=== PATIENT | female | born 1995 | race Caucasian/White ===

== ENCOUNTER 2016-08-26 16:54 | Emergency (ER) | payer MEDICAID, OTHER ==
[~2016-08-26] VITALS: Ht 167.6 cm; Wt 65.8 kg
[2016-08-26 17:34] VITALS: BP 129/78
--- NOTE | 2016-08-26 18:20 | NUR ---
Note undone in EDM - 08/26/16 at 1852 by EVELYN PT STATES INTERMITTENT ABDOMEN PAIN FOR ONE DAY . DENIES N/V/D; SKIN IS PINK/WARM/DRY; AAOX4 WITH EVEN AND STEADY GAIT; LUNGS CLEAR BL; HR EVEN AND REGULAR; PT DENIES ANY FEVER, CP, SOB, OR COUGH AT THIS TIME; PATIENT STATES PAIN OF 0/10 AT THIS TIME; VSS; PATIENT POSITIONED FOR COMFORT; HOB ELEVATED; BEDRAILS UP X2; BED DOWN. ER MADE AWARE OF PT STATUS.
--- NOTE | 2016-08-26 18:26 | NUR ---
PT AMBULATED TO ER BED 04.
--- NOTE | 2016-08-26 18:27 | NUR ---
PT STATES INTERMITTENT ABDOMEN PAIN FOR ONE DAY . DENIES N/V/D; SKIN IS PINK/WARM/DRY; AAOX4 WITH EVEN AND STEADY GAIT; LUNGS CLEAR BL; HR EVEN AND REGULAR; PT DENIES ANY FEVER, CP, SOB, OR COUGH AT THIS TIME; PATIENT STATES PAIN OF 0/10 AT THIS TIME; VSS; PATIENT POSITIONED FOR COMFORT; HOB ELEVATED; BEDRAILS UP X2; BED DOWN. ER MD MADE AWARE OF PT STATUS.
--- NOTE | 2016-08-26 19:10 | NUR ---
ENDORSED PT TO SAMI MCADAMS.
--- NOTE | 2016-08-26 19:11 | NUR ---
RECEIVED REPORT FROM DANISHA MCADAMS. ASSUMED PT CARE.
[2016-08-26 19:50] VITALS: BP 110/70
--- NOTE | 2016-08-26 19:51 | NUR ---
Patient discharged with v/s stable. Written and verbal after care instructions given and explained BY DR RODRIGUEZ. Patient verbalized understanding. Ambulatory with steady gait. All questions addressed prior to discharge. Advised to follow up with PMD.
== END 2016-08-26 19:51 | disposition home or self-care (01) ==
LOC: MED 16:54
DX: O26.891 Other specified pregnancy related conditions, first trimester (principal); R10.30 Lower abdominal pain, unspecified; Z3A.01 Less than 8 weeks gestation of pregnancy

== ENCOUNTER 2018-06-13 16:30 | Emergency (ER) | payer OTHER ==
[~2018-06-13] VITALS: Ht 165.1 cm; Wt 71.7 kg
[2018-06-13 17:05] VITALS: BP 101/73
[2018-06-13 20:41] LABS: BASOPHILS % (AUTO) 0.3 % (0.0-2.0); EOSINOPHILS # (AUTO) 0.1 K/uL (0-0.4); EOSINOPHILS % (AUTO) 0.5 % (0.0-4.0); HEMATOCRIT 41.8 % (36-48); HEMOGLOBIN 13.6 g/dL (12.0-16.0); LYMPHOCYTES # (AUTO) 3.2 K/uL (2.5-16.5); LYMPHOCYTES % (AUTO) 21.3 % (20.5-51.1); MEAN CORPUSCULAR HEMOGLOBIN 27 pg (27-31); MEAN CORPUSCULAR HGB CONC 33 g/dL (33-37); MEAN CORPUSCULAR VOLUME 83.4 fL (80-94); MONOCYTES # (AUTO) 0.9 K/uL (0.8-1.0); MONOCYTES % (AUTO) 6.1 % (1.7-9.3); NEUTROPHILS # (AUTO) 10.8 K/uL (1.8-7.7); NEUTROPHILS % (AUTO) 71.8 % (42.2-75.2); PLATELET COUNT (AUTO) 169 K/uL (140-450); RED BLOOD CELL COUNT(AUTO) 5.01 MIL/uL (4.20-5.40); RED CELL DISTRIBUTION WIDTH 13.6 % (11.6-13.7)
[2018-06-13 20:49] LABS: ALBUMIN 3.7 g/dL (3.4-5.0); ANION GAP 15.8 (8-16); CARBON DIOXIDE 24.5 mmol/L (21-32); CREATININE 0.5 mg/dL (0.6-1.3); POTASSIUM 4.3 mmol/L (3.5-5.1); TOTAL BILIRUBIN 0.3 mg/dL (0.0-1.0)
[2018-06-13 21:16] LABS: APPEARANCE,URINE CLEAR (CLEAR); BILIRUBIN,URINE NEGATIVE (NEGATIVE); BLOOD, URINE NEGATIVE (NEGATIVE); COLOR,URINE YELLOW (YELLOW); LEUKOCYTE ESTERASE ,URINE NEGATIVE (NEGATIVE); NITRITE, URINE NEGATIVE (NEGATIVE); UGLUCOSE NEGATIVE (NEGATIVE)
[2018-06-13 22:49] VITALS: BP 128/75
== END 2018-06-13 22:49 | disposition home or self-care (01) ==
LOC: MED 16:30
DX: O20.0 Threatened abortion (principal); Z3A.08 8 weeks gestation of pregnancy
CPT/HCPCS: 36415; 76817; 80053; 81003; 81025; 84702; 85025; 86900; 86901; 99284; Q0092

== ENCOUNTER 2018-06-19 12:55 | Emergency (ER) | payer OTHER ==
[~2018-06-19] VITALS: Ht 167.6 cm; Wt 72.1 kg
[2018-06-19 13:02] VITALS: BP 102/51
[2018-06-19 15:58] VITALS: BP 102/51
== END 2018-06-19 15:55 | disposition home or self-care (01) ==
LOC: MED 12:55
DX: O26.851 Spotting complicating pregnancy, first trimester (principal)
CPT/HCPCS: 36415; 81002; 81025; 84702; 99283

== ENCOUNTER 2018-08-30 21:09 | Emergency (ER) | payer OTHER ==
[~2018-08-30] VITALS: Ht 167.6 cm; Wt 79.4 kg
--- NOTE | 2018-08-30 21:23 | NUR ---
PT TAKEN TO BED 2
[2018-08-30 21:27] VITALS: BP 120/74
--- NOTE | 2018-08-30 21:39 | NUR ---
PT TAKEN TO ULTRASOUND
--- NOTE | 2018-08-30 22:07 | NUR ---
PT RETURN FROM ULTRASOUND
[2018-08-30] MEDS ORDERED: IBUPROFEN 800 MG TAB PO ONE (22:40)
[2018-08-30 23:08] VITALS: BP 110/75
--- NOTE | 2018-08-30 23:10 | NUR ---
Patient discharged with v/s stable. Written and verbal after care instructions given and explained. Patient alert, oriented and verbalized understanding of instructions. Ambulatory with steady gait. All questions addressed prior to discharge. ID band removed. Patient advised to follow up with PMD. Rx of MORTRIN 800MG given. Patient educated on indication of medication including possible reaction and side effects. Opportunity to ask questions provided and answered.
== END 2018-08-30 23:10 | disposition home or self-care (01) ==
LOC: MED 21:09
DX: N92.6 Irregular menstruation, unspecified (principal); R19.7 Diarrhea, unspecified
CPT/HCPCS: 76856; 81002; 81025; 99284; Q0092

== ENCOUNTER 2019-01-31 14:35 | Emergency (ER) | payer SELFPAY ==
--- NOTE | 2019-01-31 15:15 | NUR ---
CALLED PTS NAME, NO ANSWER. PER ASSISTANCE SPECIALIST, PT JAISON
== END 2019-01-31 15:15 | disposition left against medical advice (07) ==
LOC: MED 14:35
DX: R07.0 Pain in throat (principal); Z53.21 Procedure and treatment not carried out due to patient leaving prior to being seen by health care provider

== ENCOUNTER 2019-12-06 14:14 | Emergency (ER) | payer OTHER ==
[~2019-12-06] VITALS: Ht 167.6 cm; Wt 65.8 kg
[2019-12-06 14:20] VITALS: BP 124/78
[2019-12-06] MEDS ORDERED: PHENAZOPYRIDINE 100 MG TAB PO ONE (14:40)
[2019-12-06 14:47] VITALS: BP 124/78
== END 2019-12-06 14:42 | disposition home or self-care (01) ==
LOC: MED 14:14
DX: N39.0 Urinary tract infection, site not specified (principal)
CPT/HCPCS: 36415; 81002; 81025; 99283

== ENCOUNTER 2019-12-17 18:19 | Emergency (ER) | payer OTHER ==
[~2019-12-17] VITALS: Ht 162.6 cm; Wt 77.1 kg
[2019-12-17 18:46] VITALS: BP 110/61
--- NOTE | 2019-12-17 18:54 | NUR ---
23 Y/O FEMALE FROM HOME C/O LOWER ABD CRAMPING THAT STARTED TODAY. PT STATES SHE STARTED PERIOD ON 12/15/19 AND STARTED HAVING SMALL BLOOD CLOTS TODAY, NOTICED WHEN SHOWERING TODAY. DENIES N/V/D. ABD SOFT, ROUND, NONTENDER TO PALP. BOWEL SOUNDS PRESENT X 4 QUAD. POSITIONED FOR COMFORT. VSS MEDHX: DENIES
--- NOTE | 2019-12-17 18:55 | NUR ---
URINE COLLECTED FROM PT AT THIS TIME
--- NOTE | 2019-12-17 19:10 | NUR ---
Pt report RECEIVED FROM PEMA DAVIS. Transfer of care at this time.
--- NOTE | 2019-12-17 19:12 | NUR ---
REPORT GIVEN TO PEMA BOYLE. TRANSFER OF CARE AT THIS TIME
--- NOTE | 2019-12-17 19:45 | NUR ---
US AT BEDSIDE
[2019-12-17 20:34] VITALS: BP 110/61
== END 2019-12-17 20:34 | disposition home or self-care (01) ==
LOC: MED 18:19
DX: N94.6 Dysmenorrhea, unspecified (principal)
CPT/HCPCS: 76856; 81002; 81025; 99284; Q0092

== ENCOUNTER 2022-06-09 16:55 | Emergency (ER) | payer OTHER ==
--- NOTE | 2022-06-09 17:36 | NUR ---
PATIENT LEFT WITHOUT BEING SEEN BY . NO FURTHER CARE PROVIDED FOR PATIENT.
== END 2022-06-09 17:36 | disposition left against medical advice (07) ==
LOC: MED 16:55
DX: O20.8 Other hemorrhage in early pregnancy (principal); Z53.21 Procedure and treatment not carried out due to patient leaving prior to being seen by health care provider

== ENCOUNTER 2022-06-09 21:11 | Emergency (ER) | payer OTHER ==
--- NOTE | 2022-06-09 21:30 | NUR ---
PATIENT CALLED TO TRIAGE NO RESPONSE PATIENT LEFT WITHOUT BEING SEEN BY DR. BRIGHT. NO FURTHER CARE PROVIDED FOR PATIENT.
--- NOTE | 2022-06-09 21:35 | NUR ---
CALLED FOR THE SECOND TIME , NO RESPONSE
--- NOTE | 2022-06-09 21:40 | NUR ---
CALLED FOR THE THIRD TIME, NO RESPONSE
--- NOTE | 2022-06-09 22:13 | NUR ---
PT CALLED BY LAB WITH NO ANSWER.
--- NOTE | 2022-06-09 22:20 | NUR ---
PT CALLED BY [facility] WITH NO ANSWER.
== END 2022-06-09 21:30 | disposition left against medical advice (07) ==
LOC: MED 21:11
DX: N93.9 Abnormal uterine and vaginal bleeding, unspecified (principal); Z53.21 Procedure and treatment not carried out due to patient leaving prior to being seen by health care provider

== ENCOUNTER 2023-10-11 13:56 | Emergency (ER) | payer OTHER ==
[~2023-10-11] VITALS: Ht 167.6 cm; Wt 74.8 kg
[2023-10-11 14:27] VITALS: BP 128/75; PULSE 78; RESP 18; TEMP 98.3; O2SAT 98
[2023-10-11 15:10] LABS: APPEARANCE,URINE CLEAR (CLEAR); BILIRUBIN,URINE NEGATIVE (NEGATIVE); BLOOD, URINE 1+ (NEGATIVE); COLOR,URINE YELLOW (YELLOW); LEUKOCYTE ESTERASE ,URINE NEGATIVE (NEGATIVE); NITRITE, URINE NEGATIVE (NEGATIVE); PROTEIN,URINE NEGATIVE (NEGATIVE); UGLUCOSE NEGATIVE (NEGATIVE); UROBILINOGEN,URINE 0.2 EU/dL (0.2 - 1)
[2023-10-11 15:56] LABS: BASOPHILS % (AUTO) 0.4 % (0.0-2.0); EOSINOPHILS % (AUTO) 0.6 % (0.0-4.0); HEMATOCRIT 39.7 % (36-48); HEMOGLOBIN 13.5 g/dL (12.0-16.0); LYMPHOCYTES # (AUTO) 2.3 K/uL (2.5-16.5); LYMPHOCYTES % (AUTO) 26.3 % (20.5-51.1); MEAN CORPUSCULAR HEMOGLOBIN 28 pg (27-31); MEAN CORPUSCULAR HGB CONC 34 g/dL (33-37); MONOCYTES # (AUTO) 0.8 K/uL (0.8-1.0); MONOCYTES % (AUTO) 8.8 % (1.7-9.3); NEUTROPHILS # (AUTO) 5.5 K/uL (1.8-7.7); NEUTROPHILS % (AUTO) 63.9 % (42.2-75.2); PLATELET COUNT (AUTO) 306 K/uL (140-450); RED BLOOD CELL COUNT(AUTO) 4.84 MIL/uL (4.20-5.40); RED CELL DISTRIBUTION WIDTH 13.7 % (11.6-13.7); WHITE BLOOD COUNT (AUTO) 8.6 K/uL (4.8-10.8)
[2023-10-11 16:17] LABS: ANION GAP 15.2 (8-16); CALCIUM 8.8 mg/dL (8.5-10.1); CARBON DIOXIDE 25.3 mmol/L (21-32); CREATININE 0.8 mg/dL (0.6-1.3); POTASSIUM 4.5 mmol/L (3.5-5.1); TOTAL BILIRUBIN 0.2 mg/dL (0.0-1.0)
[2023-10-11 16:27] VITALS: TEMP 98
[2023-10-11] MEDS ORDERED: ACET-10509 PO (17:11)
[2023-10-11 17:16] VITALS: BP 115/60; PULSE 66; RESP 18; O2SAT 99
== END 2023-10-11 17:17 | disposition home or self-care (01) ==
LOC: MED 13:56
DX: R10.2 Pelvic and perineal pain (principal); Z79.899 Other long term (current) drug therapy
CPT/HCPCS: 36415; 76856; 80053; 81003; 81025; 83690; 85025; 93976; 99284; Q0092